=== PATIENT | female | born 1990 | race Caucasian/White ===

== ENCOUNTER 2019-06-16 21:37 | Emergency (ER) | payer MEDICAID, SELFPAY ==
[2019-06-16 21:42] VITALS: BP 178/120; PULSE 110; RESP 18; O2SAT 96; BMI 45.1
--- NOTE | 2019-06-16 21:50 | ED_ITS ---
Entered by Lanny Ceballos, acting as scribe for hTomas Goldman DO Jun 16, 2019 21:37 HPI - Abdominal Pain General: Chief Complaint: Abdominal Pain Stated Complaint: r side pain, preg x 9 weeks Time Seen by Provider: 06/16/19 21:47 History of Present Illness: HPI narrative: 28 yo f came to the er for abd pain. Pt states that she has been having some sharp pain on the LRQ and RL Flank pain,and is 9 week at this time. Pt has had 5 pregnancies and 3 miscarriages. MD elicited complaint: abdominal pain and flank pain Pertinent past history: other (3 miscarriages) Onset (ago): day(s) (2 days ) Pain Consistency: constant Location: RLQ Severity: mild Quality: sharp Radiation: R flank Migration to: no migration Exacerbating factors: nothing Relieving factors: nothing Associated Symptoms: Reports nausea and vomiting; Denies chills, dysuria, fever(s), hematochezia, hematuria and melena Related Data: Patient : Yes (9 weeks) Review of Systems Const: Denies: fever or chills Eyes: Denies: change in vision or blurry vision ENMT: Denies: painful swallowing, swelling of lips/tongue, bleeding gums, dental pain, Change in hearing, nose bleeds, post nasal drip or facial/sinus p ain Card: Denies: chest pain, palpitations, irregular heart rhythm, edema, swelling of feet/ankles, shortness of breath on exertion or shortness of breath when lying down Resp: Denies: shortness of breath, productive cough, non-productive cough or wheezing GI: Reports: nausea and vomiting; Denies: blood in stool or black tarry stool : Denies: painful urination, blood in urine, vaginal bleeding or vaginal discharge Musc: Denies: neck pain, back pain, redness or joint warmth Skin/Breast: Denies: rash, itching or redness Neuro: Denies: headache, dizziness, vertigo, confusion or seizure-like activity Psych: Denies: anxiety, visual hallucinations or auditory hallucinations PFSH ED PFSH: Statuses (acute, chronic, etc) shown below reflect problem list status as previously entered and may not be historically accurate Social History Smoking and tobacco status: current every day smoker Physical Exam Const: GENERAL APPEARANCE: well developed ORIENTATION/CONSCIOUSNESS: Yes oriented to person, Yes oriented to place and Yes oriented to time HENMT: COMMON NORMALS: normocephalic, external ears normal and external nose normal HEAD & SCALP: normocephalic; no scalp tenderness FACE & SINUS: normal facial exam NOSE: external nose normal and no nasal discharge EXTERNAL EAR: Yes external ears normal Eye: COMMON NORMALS: PERRL, EOMs intact bilaterally and conjunctivae normal EYELID: eyelids normal CONJUNCTIVA: Yes conjunctivae normal PUPIL: Yes PERRL Neck/C-Spine: COMMON NORMALS: full ROM GENERAL: No tracheal deviation CERVICAL SPINE: Yes normal cervical lordosis Chest: COMMONS NORMALS: inspection of chest normal CHEST: No tenderness Resp: COMMON NORMALS: clear to auscultation bilaterally EFFORT & INSPECTION: No tachypneic, No respiratory distress, No retractions, No uses accessory muscles and No tracheal deviation AUSCULTATION: clear to auscultation bilaterally, no rhonchi, no wheezes and lung sounds not diminished Cardio: COMMON NORMALS: regular rate and regular rhythm RATE: regular rate RHYTHM: regular rhythm HEART SOUNDS: no murmurs PERIPHERAL PULSES: radial pulses present GI: INSPECTION: No abdominal distension AUSCULTATION: No hyperactive bowel sounds and No hypoactive bowel sounds PALPATION: Yes tender Details: RLQ, No guarding, No rigid and No rebound tenderness present PERCUSSION: no dullness to percussion and no tympanic to percussion : COMMON NORMALS: Yes no CVA tenderness BLADDER/KIDNEY EXAM: Yes no CVA tenderness Back/Pelvis: COMMON NORMALS: no CVA tenderness Neuro: SENSORIUM/ORIENTATION: Yes oriented to person, Yes oriented to place and Yes oriented to time Psych: COMMON NORMALS: mental status grossly normal Skin: COMMON NORMALS: no rashes or lesions noted GENERAL SKIN EXAM: no rashes or lesions noted Course ED course: 28-year-old female patient. She presents with lower belly pain. No vaginal bleeding. Her cervix is closed. Ultrasound reveals a blighted ovum. Vital Signs: Vital signs: Vital Signs Pulse Rate 90 06/17/19 00:52 Respiratory Rate 18 06/17/19 00:52 Blood Pressure 148/98 06/17/19 00:52 Pulse Oximetry 92 06/17/19 00:52 MDM - Abdominal Pain Lab Data: Labs: Lab Results 0106/16/19 06/16/19 Range/Units 22:13 22:13 22:13 WBC 11.0 H (4.0-10.0) 10^3/ uL RBC 5.11 (4.1-5.3) 10^6/u L Hgb 13.6 (11.5-15.3) g/dL Hct 41.6 (37.0-47.0) % MCV 81.4 (81-99) fL MCH 26.6 L (28.0-34.0) pg MCHC 32.7 (30.0-36.0) g/dL RDW 13.7 (12.1-15.1) % Plt Count 357 (130-400) 10^3/c mm MPV 9.6 (7.4-10.4) fL Neut % (Auto) 61.4 % Lymph % (Auto) 29.4 % Barren % (Auto) 6.6 % Eos % (Auto) 1.6 % Baso % (Auto) 0.5 % Neut # (Auto) 6.7 (1.8-7.7) 10^3/u L Lymph # (Auto) 3.2 (0.8-4.8) 10^3/u L Barren # (Auto) 0.7 (0.2-0.9) 10^3/u L Eos # (Auto) 0.2 (0.0-0.8) 10^3/u L Baso # (Auto) 0.1 (0.0-0.1) 10^3/u L Nucleated RBC % (a uto) 0 % Nucleated RBCs # 0.0 /100WBC Sodium 136 (136-145) mmol/L Potassium 3.6 (3.5-5.1) mmol/L Chloride 100 (98-107) mmol/L Carbon Dioxide 20 L (22-29) mmol/L Anion Gap 19.6 H (5-19) BUN 9 (6-20) mg/dL Creatinine 0.6 (0.5-0.9) mg/dL GFR Calculation 119.0 (90-130) mL/min Glucose 129 H (74-109) mg/dL Calcium 10.2 (8.5-10.5) mg/dL Total Bilirubin 0.2 (0.15-1.2) mg/dL AST 17 (0-32) U/L ALT 27 (0-33) U/L Alkaline Phosphata se 65 (35-105) IU/L Total Protein 7.5 (6.6-8.7) g/dL Albumin 4.5 (3.5-5.2) g/dL Globulin 3.0 (1.3-4.6) g/dL Ser , [place] [address].00 mIU/mL Urine Color (Yellow) Urine Appearance (CLEAR) Urine pH (5-7) Ur Specific Gravit y (1.005-1.030) Urine Protein (Negative) Urine Glucose (UA) (Normal) Urine Ketones (Negative) Urine Occult Blood (Negative) Urine Nitrate (Negative) Urine Bilirubin (NEGATIVE) Urine Urobilinogen (Negative) mg/dL Ur Leukocyte Kellie ase (Negative) Blood Type A Negative 06/16/19 Range/Units 23:34 WBC (4.0-10.0) 10^3/ uL RBC (4.1-5.3) 10^6/u L Hgb (11.5-15.3) g/dL Hct (37.0-47.0) % MCV (81-99) fL MCH (28.0-34.0) pg MCHC (30.0-36.0) g/dL RDW (12.1-15.1) % Plt Count (130-400) 10^3/c mm MPV (7.4-10.4) fL Neut % (Auto) % Lymph % (Auto) % Barren % (Auto) % Eos % (Auto) % Baso % (Auto) % Neut # (Auto) (1.8-7.7) 10^3/u L Lymph # (Auto) (0.8-4.8) 10^3/u L Barren # (Auto) (0.2-0.9) 10^3/u L Eos # (Auto) (0.0-0.8) 10^3/u L Baso # (Auto) (0.0-0.1) 10^3/u L Nucleated RBC % (a uto) % Nucleated RBCs # /100WBC Sodium (136-145) mmol/L Potassium (3.5-5.1) mmol/L Chloride (98-107) mmol/L Carbon Dioxide (22-29) mmol/L Anion Gap (5-19) BUN (6-20) mg/dL Creatinine (0.5-0.9) mg/dL GFR Calculation (90-130) mL/min Glucose (74-109) mg/dL Calcium (8.5-10.5) mg/dL Total Bilirubin (0.15-1.2) mg/dL AST (0-32) U/L ALT (0-33) U/L Alkaline Phosphata se (35-105) IU/L Total Protein (6.6-8.7) g/dL Albumin (3.5-5.2) g/dL Globulin (1.3-4.6) g/dL Ser , Galo i-Qnt mIU/mL Urine Color Yellow (Yellow) Urine Appearance Clear (CLEAR) Urine pH 5 (5-7) Ur Specific Gravit y 1.030 (1.005-1.030) Urine Protein Neg (Negative) Urine Glucose (UA) Norm (Normal) Urine Ketones Negative (Negative) Urine Occult Blood Neg (Negative) Urine Nitrate Negative (Negative) Urine Bilirubin Neg (NEGATIVE) Urine Urobilinogen Norm (Negative) mg/dL Ur Leukocyte Kellie ase Negative (Negative) Blood Type Discharge Plan Discharge Patient Disposition: Home, Self-Care Clinical Impression: Blighted ovum Condition: Stable Prescriptions: [place] 7.5-325 mg tablet 1 tab PO Q6H PRN (Reason: pain) Qty: 10 RF: 0 ondansetron HCl [Zofran] 4 mg tablet 4 mg PO Q6H PRN (Reason: nausea and vomiting) Qty: 10 RF: 0 No Action No Known Home Medications RF: 0 Discharge Orders: Discharge Order (Routine); Ordered 06/17/19 Ordered By: Thomas Goldman Referrals: Jose Izaguirre MD [Physician] - 4-7 days Discharge Diet: Advance as tolerated Discharge Activity: Resume usual activity Patient Instructions: Spontaneous Miscarriage (ED) Activity Restrictions/Additional Instructions: No strenuous activity. Return to the ER for brisk vaginal bleeding, soaking more than 1 pad per hour for more than 3 to 4 hours. Return also for fever, worsening pain despite treatment, other concerning symptoms. Discharge Date/Time: 06/17/19 00:53 Coding Level of Care Code ED Wet Pan Operator for Chg Fwd The documentation recorded by the Tucker pearce Stephanie Lyn, accurately reflects the service I personally performed and the decisions made by me, Thomas Goldman, Jun 16, 2019 21:37
[2019-06-16 22:23] LABS: Basophils # 0.1 10^3/uL (0.0-0.1); Basophils % 0.5 %; Eosinophils # 0.2 10^3/uL (0.0-0.8); Eosinophils % 1.6 %; Hematocrit 41.6 % (37.0-47.0); Hemoglobin 13.6 g/dL (11.5-15.3); Lymphocytes # 3.2 10^3/uL (0.8-4.8); Lymphocytes % 29.4 %; Mean Corpuscular HGB Conc 32.7 g/dL (30.0-36.0); Mean Corpuscular Hemoglobin 26.6 pg (28.0-34.0); Mean Corpuscular Volume 81.4 fL (81-99); Mean Platelet Volume 9.6 fL (7.4-10.4); Monocytes # 0.7 10^3/uL (0.2-0.9); Monocytes % 6.6 %; Neutrophils # 6.7 10^3/uL (1.8-7.7); Neutrophils % 61.4 %; Nucleated Red Blood Cells % 0 %; Platelet Count 357 10^3/cmm (130-400); Red Blood Count 5.11 10^6/uL (4.1-5.3); Red Cell Distribution Width 13.7 % (12.1-15.1)
[2019-06-16 22:59] LABS: Alanine Aminotransferase 27 U/L (0-33); Albumin Level 4.5 g/dL (3.5-5.2); Alkaline Phosphatase 65 IU/L (35-105); Anion Gap 19.6 (5-19); Aspartate Amino Transferase 17 U/L (0-32); Blood Urea Nitrogen 9 mg/dL (6-20); Calcium 10.2 mg/dL (8.5-10.5); Carbon Dioxide 20 mmol/L (22-29); Chloride 100 mmol/L (98-107); Glucose 129 mg/dL (74-109); Potassium 3.6 mmol/L (3.5-5.1); Sodium 136 mmol/L (136-145); Total Bilirubin 0.2 mg/dL (0.15-1.2); Total Protein 7.5 g/dL (6.6-8.7)
[2019-06-16] MEDS: sodium chloride 0.9% 1,000 ML 999 ML IV (23:05)
[2019-06-16 23:43] LABS: Add Urine Microscopic? NO
[2019-06-16 23:47] LABS: Bilirubin Urine Neg (NEGATIVE); Blood Urine Neg (Negative); Glucose Urine UA Norm (Normal); Ketones Urine Negative (Negative); Leukocyte Esterase Urine Negative (Negative); Nitrate Urine Negative (Negative); Protein Urine Neg (Negative); Urine Appearance Clear (CLEAR); Urine Color Yellow (Yellow); Urobilinogen Urine Norm (Negative); pH Urine 5 (5-7)
[2019-06-17 00:52] VITALS: BP 148/98; PULSE 90; RESP 18; O2SAT 92
--- NOTE | 2019-06-17 22:00 | USR_ITS ---
PROCEDURE INFORMATION: Exam: US First Trimester, Transabdominal and US , Transvaginal Exam date and time: 06/17/2019 12:21 AM Age: 28 years old Clinical indication: complicated by abdominal or pelvic pain; Right upper quadrant; First trimester; Gestational age or lmp: 9n week; ; Additional info: Right sided pelvis pain. LMP 04/15/2019. TECHNIQUE: Imaging protocol: Real-time transabdominal obstetrical ultrasound of the maternal pelvis and a first trimester , less than 14 weeks 0 days, with image documentation. Transvaginal imaging was used for better evaluation of the fetus and adnexa. COMPARISON: No relevant prior studies available. FINDINGS: There is an apparent intrauterine gestational sac, measuring approximately 39 x 17 x 25 mm. Mean sac diameter of 27 mm would correspond with gestational age of about 8 weeks. However, no yolk sac, pole, or heart activity is identified. All of the above findings should be identified with a gestational sac of this size. Therefore, this appearance is felt to be most compatible with a blighted ovum/anembryonic gestation. If there is any clinical uncertainty, follow-up in several days could help confirm. Maternal ovaries/adnexa appear essentially unremarkable. Blood flow detected in each ovary. The urinary bladder was not completely evaluated/imaged at this time. Endovaginal scanning provided better visualization/evaluation of the gestational sac and contents, as discussed above. US/US OB <= 14 weeks fetus [id number] IMPRESSION: 1. Appearance compatible with a blighted ovum/anembryonic gestation, see details above. 2. Other details discussed above.
--- NOTE | 2019-06-19 11:05 | DCPLANNER ---
Addendum entered by Deborah Castillo 06/19/19 12:28: Shoshana from [facility] called upper caser, a follow up appointment is scheduled for Thursday, July 11, 2019 at 10:[address] Izaguirre. Clinic called patient with appointment information. Original Note: statement clerks manager had message to schedule a follow up appointment for patient with [facility]. statement clerks manager called the clinic, spoke with Shoshana, gave clinic patients information. statement clerks manager was told that patients information would be printed and reviewed. Clinic will call upper caser and patient with appointment information.
--- NOTE | 2019-07-14 15:44 | DCPLANNER ---
Appointment scheduled for 07.11.19 was cancelled.
== END 2019-06-17 00:53 | disposition home or self-care (01) ==
PROVIDERS: Emergency Provider Emergency Medicine
DX: O02.0 Blighted ovum and nonhydatidiform mole (principal); F17.210 Nicotine dependence, cigarettes, uncomplicated
CPT/HCPCS: 36415; 76801; 80053; 81003; 84702; 85025; 86900; 96360; 99282; J7030